=== PATIENT | female | born 1955 | race Caucasian/White ===

== ENCOUNTER → 2016-11-28 | Outpatient (CLI) | payer BC ==
--- NOTE | 2016-11-28 11:54 | RADRPT ---
PROCEDURE: XR pelvis/right hip. CLINICAL INDICATION: Hip pain TECHNIQUE: AP pelvis/AP and lateral right hip views performed COMPARISON: No prior studies are available for comparison. FINDINGS: There is mild to moderate right hip osteoarthrosis and mild left hip osteoarthrosis. This is associa florin with joint space narrowing, subchondral sclerosis and osteophytosis. There is normal mineraliza tion. No fractures or osseous lesions are identified. The soft tissues are unremarkable. IMPRESSION: Mild to moderate right hip osteoarthrosis. Mild left hip osteoarthrosis RPTAT: [facility] .Maximo Crane MD, Date Time Electronically viewed and signed by .Maximo Crane MD, on 11/28/2016 11:54 .B/
== END | disposition home or self-care (01) ==
LOC: HKI 10:44
PROVIDERS: ATTEND Orthopaedic Surgery
DX: M16.11 Unilateral primary osteoarthritis, right hip (principal)
CPT/HCPCS: 73502; G0463

== ENCOUNTER → 2017-04-14 | Outpatient (CLI) | payer BC ==
--- NOTE | 2017-04-14 10:00 | RADRPT ---
PROCEDURE: XR pelvis/right hip. CLINICAL INDICATION: Hip pain TECHNIQUE: AP pelvis/AP and lateral right hip views performed COMPARISON: 11/28/2016 FINDINGS: There is moderate right hip osteoarthrosis and mild to moderate left hip osteoarthrosis. This is ass ociated with joint space narrowing, subchondral sclerosis and osteophytosis. There is normal mineral ization. No fractures or osseous lesions are identified. The soft tissues are unremarkable. IMPRESSION: Moderate right hip osteoarthrosis. Mild left hip osteoarthrosis RPTAT: [facility] .Maximo Crane MD, MD Date Time Electronically viewed and signed by .Maximo Crane MD, on 04/14/2017 10:00 .B/
== END | disposition home or self-care (01) ==
LOC: HKI 09:19
PROVIDERS: ATTEND Orthopaedic Surgery
DX: M25.551 Pain in right hip (principal); M16.11 Unilateral primary osteoarthritis, right hip
CPT/HCPCS: 73502; G0463